=== PATIENT | male | born 1970 | race Asian ===

== ENCOUNTER 2017-08-26 15:07 | Emergency (ER) | payer BC ==
[~2017-08-26] VITALS: Ht 170.2 cm; Wt 99.3 kg
[2017-08-26 15:14] VITALS: Ht 170.2 cm; Wt 99.3 kg
[2017-08-26 16:20] LABS: BASOPHIL % 0.3 % (0-2); PLATELET COUNT 267 x10^3mcL (130-400); RED CELL DISTRIBUTION WIDTH 13.6 % (11.5-14.5)
[2017-08-26 16:24] LABS: CALCIUM 8.4 mg/dL (8.5-10.1); CARBON DIOXIDE 26.6 mmol/L (21-32); CHLORIDE SERUM 101 mmol/L (98-107); CREATININE SERUM 0.9 mg/dL (0.7-1.3); GFR1 > 60 mL/min; GLUCOSE SERUM 108 mg/dL (74-106); POTASSIUM SERUM 3.8 mmol/L (3.5-5.1); SODIUM SERUM 137 mmol/L (136-145)
[2017-08-26 16:28] LABS: ALKALINE PHOSPHATASE 120 U/L (46-116); ALT/SGPT 34 U/L (16-63); AST/SGOT 23 U/L (15-37); BILIRUBIN TOTAL 0.4 mg/dL (0.20-1.00); LIPASE 149 IU/L (73-393)
[2017-08-26 17:35] VITALS: BP 140/91
== END 2017-08-26 17:36 | disposition home or self-care (01) ==
LOC: ED 15:07
PROVIDERS: Emergency Medicine
DX: K52.9 Noninfective gastroenteritis and colitis, unspecified (principal)
CPT/HCPCS: J1885; J7030